=== PATIENT | female | born 1950 ===

== ENCOUNTER 2020-06-08 07:16 | Observation (INO) ==
[~2020-06-08 07:16] MED LIST: Buffered Lidocaine 1% SYRIN 1 ml INTRADERM ONE; Bupivacaine 0.5% SDV PF 30ML VIAL ONE; Famotidine IV 10 MG/ML 2 ml VIAL (20 mg) IV ONE; Lactated Ringers 1000 ml BAG 1,000 ML IV SCH; Midazolam 5 mg/5 ml VIAL 1 mg/ml 5 ml VIAL (5 mg) ONE; Phenylephrine 40 mcg/mL 10mL (400mcg) SYRINGE ONE; Sodium Citrate/Citric Acid LIQ 15 ML UDC PO ONE
[2020-06-08] MEDS ORDERED: ceFAZolin 2 GM PREMIX 2 GM/50 ML BAG ONE (07:37)
[2020-06-08] MEDS ORDERED: Famotidine IV 10 MG/ML 2 ml VIAL (20 mg) ONE (07:37)
[2020-06-08] MEDS ORDERED: Sodium Citrate/Citric Acid LIQ 15 ML UDC ONE (07:37)
[2020-06-08] MEDS ORDERED: Lidocaine 1% MPF 5 ML VIAL ONE (08:13)
[2020-06-08] MEDS ORDERED: ROPIVACAINE 5 MG/ML 30 ML BTL (0.5%) ONE ×2 (08:14→08:38)
[2020-06-08] MEDS ORDERED: Phenylephrine 40 mcg/mL 10mL (400mcg) SYRINGE ONE (10:15)
[2020-06-08] MEDS ORDERED: Phenylephrine IV 10 MG/ML 1 ml VIAL ONE (10:27)
[2020-06-08] MEDS ORDERED: Propofol 10 MG/ML 20 ML BTL ONE (11:15)
[2020-06-08] MEDS ORDERED: Naloxone 0.4 mg VIAL 0.4 mg/ml 1 ml VIAL IV PRN (11:24)
[2020-06-08] MEDS ORDERED: Ondansetron 4 mg VIAL 2 MG/ML 2 ml VIAL IV PRN ×2 (11:24→12:11)
[2020-06-08] MEDS ORDERED: fentaNYL 100 mcg/2 ml 50 MCG/ML VIAL IV PRN (11:24)
[2020-06-08] MEDS ORDERED: Lactulose 30 ml UDC PO PRN (12:11)
[2020-06-08] MEDS ORDERED: Ondansetron ODT 4 mg TAB 4 MG TAB PO PRN (12:11)
[2020-06-08] MEDS ORDERED: diPHENhydraMINE 25 mg TAB PO PRN (12:11)
[2020-06-08] MEDS ORDERED: diPHENhydraMINE IV 50 MG/ML 1 ml VIAL (BENADRYL) IV PRN (12:11)
[2020-06-08] MEDS ORDERED: Magnesium Hydroxide LIQ 30 ML UDC PO PRN (12:11)
[2020-06-08] MEDS ORDERED: Morphine 2 MG/ML SYRINGE IV PRN (12:11)
[2020-06-08] MEDS ORDERED: Ondansetron 4 mg VIAL 2 MG/ML 2 ml VIAL ONE (13:41)
[2020-06-08] MEDS: Lactated Ringers 1000 ml BAG 1,000 ML IV SCH (14:00)
[2020-06-08] MEDS: oxyCODONE/Acetamin 5/325 mg TAB PO PRN (14:41)
[2020-06-08] MEDS ORDERED: Dextrose 50% Syringe 50 ml 25 GM/50 ML SYRINGE IV PUSH PRN (17:36)
[2020-06-08] MEDS ORDERED: Prochlorperazine 5 mg/ml 2 ml VIAL (10 mg) IV PRN (17:36)
[2020-06-08] MEDS: ceFAZolin 1 GM ADVAN 1 GM in NS 0.9% 50 ML 50 ML IVPB SCH (18:11)
[2020-06-08] MEDS: Magnesium Hydroxide LIQ 30 ML UDC PO SCH (22:07)
[2020-06-09] MEDS: Lactated Ringers 1000 ml BAG 1,000 ML IV SCH (00:38)
[2020-06-09] MEDS: oxyCODONE/Acetamin 5/325 mg TAB PO PRN ×2 (01:39→07:59)
[2020-06-09] MEDS: ceFAZolin 1 GM ADVAN 1 GM in NS 0.9% 50 ML 50 ML IVPB SCH ×2 (01:40→09:56)
[2020-06-09 06:02] LABS: Hematocrit 29 % (35-47); Hemoglobin 9.6 g/dL (12.0-16.0); Mean Platelet Volume 7.6 fL (7.4-10.4); Platelet Count 187 10^3/uL (150-450)
[2020-06-09 06:21] LABS: BUN/Creatinine Ratio 15.9 (8-20); Calcium 8.5 mg/dL (8.6-10.3); EGFR African American 76.6 (>60); EGFR Non-African American 63.3 (>60); Potassium 4.2 mmol/L (3.5-5.0)
[2020-06-09] MEDS: Magnesium Hydroxide LIQ 30 ML UDC PO SCH (08:01)
[2020-06-09] MEDS ORDERED: Vitamin THERAPEUTIC TAB PO SCH (09:00)
[2020-06-09] MEDS ORDERED: Morphine ER 15 mg TAB ** extended release PO SCH (11:00)
[2020-06-09 15:33] VITALS: BP 132/60
== END 2020-06-09 16:15 | disposition home or self-care (01) ==
LOC: SSU 07:16 → OR 07:16
PROVIDERS: ADMIT Orthopaedic Surgery Adult Reconstructive Orthopaedic Surgery; ATTEND Orthopaedic Surgery Adult Reconstructive Orthopaedic Surgery